=== PATIENT | male | born 1960 | race Caucasian/White ===

== ENCOUNTER 2017-10-05 07:52 | Outpatient (CLI) | payer OTHER, SELFPAY ==
[2017-10-05] VITALS (8 sets, daily range): BP systolic 125–137; BP diastolic 69–84; PULSE 69–77; RESP 16–18; TEMP 36.1; O2SAT 78–100
--- NOTE | 2017-10-05 07:58 | DI.RAD.S_ITS ---
PROCEDURE: PAIN L/S TRANSFORAMINAL INJECT INDICATIONS: L3/4 spondylolisthesis. COMPARISON: MR LS-spine 08/18/17. A FINDINGS: Fluoroscopic spot filming was performed to verify placement of spinal needles at the left L3-4 level(s), as labeled on the films. The level of injection was discussed and confirmed with Dr. Loya, with reference to the prior MRI 08/18/17. Appropriate location(s) of the needle tip(s) was confirmed by injection of iodinated contrast. IMPRESSION: Successful left L3-4 perineural epidural injection. Dictated by: Jacinto Michel M.D. on 10/05/2017 at 11:06 Approved by: Jacinto Michel M.D. on 10/05/2017 at 11:28
--- NOTE | 2017-10-05 08:14 | PM.PROC.1 ---
Procedures Date/Time Date of procedure: 10/05/17 Time of procedure: 08:16
[2017-10-05] MEDS: MIDAZOLAM 2 MG/2 ML VIAL 3 MG IV (08:49)
[2017-10-05] MEDS: methylPREDNISolone acetate 80 MG/ML VIAL INJ (08:53)
[2017-10-05] MEDS: DEXAMETHASONE 10 MG/ML VIAL 20 MG INJ (08:53)
[2017-10-05] MEDS: IOPAMIDOL 50 ML VIAL INJ (08:53)
[2017-10-05] MEDS: BUPIVACAINE 0.25% (PF) 30 ML VIAL INJ (08:53)
--- NOTE | 2017-10-05 09:10 | P.PCN_ITS ---
Procedures Date/Time Date of procedure: 10/05/17 Time of procedure: 09:04 General Procedure description: PREOP DIAGNOSIS 1. FORMAINAL STENOSIS WITH LE SYMPTOMS POST OP DIAGNOSIS 1. FORMAINAL STENOSIS WITH LE SYMPTOMS PROCEDURES 1. FLUOROSCOPICALLY GUIDED CONTRAST CONTROLLED TRANSFORAMINAL EPIDURAL STEROID INJECTION - LEFT L4/5 TFESI PHYSICIAN: Davon Loya DO INDICATIONS: Allen is referred by GWEN Diehl for treatment of Foraminal Stenosis with Left LE Symptoms FINDINGS Foraminal Nerve Root Compression secondary to disc disease and facet hypertrophy DESCRIPTION OF PROCEDURE: Following denial of allergy and review of potential side effects and complications, including, but not necessarily limited to, infection, allergic reaction, local tissue breakdown, stroke, temporary or permanent nerve injury, paralysis, and possible , the patient indicated that the patient understood and agreed to proceed. An informed consent document was signed by the patient, witnessed by a nurse, and placed in the patient's chart. Additionally, other treatment options including medications, modalities, and physical therapy were reviewed with the patient. Per the patient request, IV conscious sedation was administered via 3mg of Versed to patient comfort. The patient's vital signs were monitored throughout the procedure by both the nurse and the physician without significant fluctuation. The patient remained conversant throughout the procedure. In the prone position following sterile prep and drape of the lumbar region, the Left L4/5 posterior neuroforamen was identified fluoroscopically. The skin was anesthetized via a 25-gauge 1.5-inch needle with 1% lidocaine solution. At this point, a 25-gauge 3.5-inch spinal needle was atraumatically introduced and advanced under fluoroscopic guidance through the posterior Left L4/5 neuroforamen to approximately the anterior aspect of the canal. Depth was confirmed on lateral view. Following negative aspiration, injection of approximately 1.5 cc of Isovue 200 under live fluoroscopy in the AP view confirmed excellent flow along the nerve root, into the epidural space without vascular or intrathecal uptake observed Radiological data, including multiple fluoroscopic views of the lumbosacral spine, reveal a spinal needle at the Left L5/S1 posterior neuroforamen. Subsequent views show flow of contrast material flowing superiorly and inferiorly along the nerve root confirming epidural flow. Subsequently, a test dose of 1.5 cc of 1% lidocaine solution was administered and patient was observed for two minutes for signs or symptoms of complications , including abdominal pain, shortness of breath, bilateral upper or lower extremity weakness, nausea and vomiting, prior to steroid injection. At this point, a total of 3 cc or 20 mg of dexamethasone and 80mg Depo Medrol was injected without incident. The patient was then transferred to the recovery area where they were observed for an appropriate time after the injection. The patient reported a VAS score of 7 prior to the procedure and a post-procedure VAS of 0. Total Fluoroscopy Time: 20.9 seconds Total Conscious Sedation Tme: 24min POST OP INSTRUCTIONS The patient was provided a Pain Log to continue to record their response to the target-specific procedure prior to follow-up visit with their referring physician. Additionally, specific post-injection care instructions and a contact number to our office were provided if concerns arise regarding possible complications associated with the procedure are suspected. Davon Loya DO Complications: none
== END 2017-10-05 09:47 | disposition home or self-care (01) ==
PROVIDERS: Visit Provider Physical Medicine & Rehabilitation
DX: M54.17 Radiculopathy, lumbosacral region (principal)
CPT/HCPCS: 64483; 99152; J1040; J1100; J2250

== ENCOUNTER 2018-03-22 11:00 | Outpatient (CLI) | payer OTHER, SELFPAY ==
--- NOTE | 2018-03-22 11:01 | DI.RAD.S_ITS ---
PROCEDURE: PAIN L/S TRANSFORAMINAL INJECT INDICATIONS: [id number] Left L4/5 Transoframinal PADMINI FINDINGS: Fluoroscopic spot filming was performed to verify placement of spinal needles at the left L4-5 transforaminal level(s), as labeled on the films. Appropriate location(s) of the needle tip(s) was confirmed by injection of iodinated contrast. IMPRESSION: Successful left L4-5 neural foraminal needle tip localization for epidural steroid injection. Dictated by: Jacinto Michel M.D. on 03/22/2018 at 14:14 Approved by: Jacinto Michel M.D. on 03/22/2018 at 14:15
[2018-03-22 11:14] VITALS: BP 129/66; PULSE 75; RESP 18; O2SAT 97
[2018-03-22 11:37] VITALS: BP 122/83; PULSE 73; RESP 18; O2SAT 99
[2018-03-22 11:42] VITALS: BP 134/86; PULSE 72; RESP 18; O2SAT 99
[2018-03-22] MEDS: IOPAMIDOL 15 ML VIAL 3 ML INJ (11:43)
[2018-03-22] MEDS: BUPIVACAINE 0.25% (PF) VIAL 2 ML INJ (11:43)
[2018-03-22] MEDS: DEXAMETHASONE 10 MG/ML VIAL 20 MG INJ (11:44)
[2018-03-22] MEDS: methylPREDNISolone acetate 80 MG/ML VIAL INJ (11:44)
[2018-03-22 11:45] VITALS: BP 140/80; PULSE 72; RESP 18; O2SAT 100
--- NOTE | 2018-03-22 11:51 | P.PCN_ITS ---
Procedures Date/Time Date of procedure: 03/22/18 Time of procedure: 11:50 General Procedure description: PREOP DIAGNOSIS 1. FORMAINAL STENOSIS WITH LE SYMPTOMS POST OP DIAGNOSIS 1. FORMAINAL STENOSIS WITH LE SYMPTOMS PROCEDURES 1. FLUOROSCOPICALLY GUIDED CONTRAST CONTROLLED TRANSFORAMINAL EPIDURAL STEROID INJECTION - LEFT L4/5 PHYSICIAN: Davon Loya DO INDICATIONS: Allen is referred for Foraminal Stenosis with Left LE Symptoms FINDINGS Foraminal Nerve Root Compression secondary to disc disease and facet hypertrophy DESCRIPTION OF PROCEDURE: Following denial of allergy and review of potential side effects and complications, including, but not necessarily limited to, infection, allergic reaction, local tissue breakdown, stroke, temporary or permanent nerve injury, paralysis, and possible , the patient indicated that the patient understood and agreed to proceed. An informed consent document was signed by the patient, witnessed by a nurse, and placed in the patient's chart. Additionally, other treatment options including medications, modalities, and physical therapy were reviewed with the patient. After review of previous anaesthesic history and IV conscious sedation the patient was deemed safe to proceed with todays procedure with IV conscious sedation as ASA class II designation. Safety time-out was performed to confirm patient ID, procedure to be performed and site of procedure. IV sedation was deemed unnecessary and thus not administered by the RN after DO order, during the course of the procedure while the patient remained responsive to all verbal commands In the prone position following sterile prep and drape of the lumbar region, the left L4/5 posterior neuroforamen was identified fluoroscopically. The skin was anesthetized via a 25-gauge 1.5-inch needle with 1% lidocaine solution. At this point, a 25-gauge 3.5-inch spinal needle was atraumatically introduced and advanced under fluoroscopic guidance through the posterior left L4/5 neuroforamen to approximately the anterior aspect of the canal. Depth was confirmed on lateral view. Following negative aspiration, injection of approximately 1.5 cc of Isovue 200 under live fluoroscopy in the AP view confirmed excellent flow along the nerve root, into the epidural space without vascular or intrathecal uptake observed Radiological data, including multiple fluoroscopic views of the lumbosacral spine, reveal a spinal needle at the left L4/5 posterior neuroforamen. Subsequent views show flow of contrast material flowing superiorly and inferiorly along the nerve root confirming epidural flow. Subsequently, a test dose of 1.5 cc of 1% lidocaine solution was administered and patient was observed for two minutes for signs or symptoms of complications , including abdominal pain, shortness of breath, bilateral upper or lower extremity weakness, nausea and vomiting, prior to steroid injection. At this point, a total of 3 cc or 20 mg of dexamethasone and 80mg Depo Medrol was injected without incident. The procedure tolerated the procedure well without signs or symptoms of complications prior to transfer to the recovery area continued monitoring without incident. The patient was then transferred to the recovery area where they were observed for an appropriate time after the injection. The patient reported a VAS score of 7 prior to the procedure and a post- procedure VAS of 0. Total Fluoroscopy Time: 20.9 seconds Total Conscious Sedation Time: 24min POST OP INSTRUCTIONS The patient was provided a Pain Log to continue to record their response to the target-specific procedure prior to follow-up visit with their referring physician. Additionally, specific post-injection care instructions and a contact number to our office were provided if concerns arise regarding possible complications associated with the procedure are suspected. Davon Loya DO Complications: none
[2018-03-22 11:53] VITALS: BP 122/78; PULSE 72; RESP 16; O2SAT 100
== END 2018-03-22 12:00 ==
LOC: RAD 11:00
PROVIDERS: Visit Provider Physical Medicine & Rehabilitation
DX: M48.061 Spinal stenosis, lumbar region without neurogenic claudication (principal); M51.16 Intervertebral disc disorders with radiculopathy, lumbar region; M43.16 Spondylolisthesis, lumbar region; M99.83 Other biomechanical lesions of lumbar region
CPT/HCPCS: 64483; J1040; J1100; J2250

== ENCOUNTER 2018-07-04 13:54 | Outpatient (CLI) | payer OTHER, SELFPAY ==
[2018-07-04] VITALS (7 sets, daily range): BP systolic 117–138; BP diastolic 76–83; PULSE 68–80; RESP 16–18; TEMP 36.4; O2SAT 96–99
--- NOTE | 2018-07-04 13:57 | DI.RAD.S_ITS ---
PROCEDURE: PAIN L/S TRANSFORAMINAL INJECT INDICATIONS: Left L4-5 radiculopathy FINDINGS: Fluoroscopic spot filming was performed to verify placement of spinal needles at the L4-L5 level(s), as labeled on the films. Appropriate location(s) of the needle tip(s) was confirmed by injection of iodinated contrast. Dictated by: Durga Castaneda M.D. on 07/04/2018 at 15:19 Approved by: Durga Castaneda M.D. on 07/04/2018 at 15:20
[2018-07-04] MEDS: MIDAZOLAM 5 MG/5 ML VIAL IV (14:30)
[2018-07-04] MEDS: fentaNYL 100 MCG/2 ML INJ 50 MCG IV (14:30)
[2018-07-04] MEDS: IOPAMIDOL 15 ML VIAL 3 ML INJ (14:43)
[2018-07-04] MEDS: BUPIVACAINE 0.25% (PF) VIAL 2 ML INJ (14:43)
[2018-07-04] MEDS: DEXAMETHASONE 10 MG/ML VIAL 20 MG INJ (14:43)
--- NOTE | 2018-07-04 14:52 | PM.PROC.1 ---
Procedures Date/Time Date of procedure: 07/04/18 Time of procedure: 14:52 General Procedure description: PREOP DIAGNOSIS 1. FORMAINAL STENOSIS WITH LE SYMPTOMS POST OP DIAGNOSIS 1. FORMAINAL STENOSIS WITH LE SYMPTOMS PROCEDURES 1. FLUOROSCOPICALLY GUIDED CONTRAST CONTROLLED TRANSFORAMINAL EPIDURAL STEROID INJECTION - Left L5/S1 PHYSICIAN: Davon Loya DO INDICATIONS: Allen is referred by SUSANA Diehl for treatment of Foraminal Stenosis with Left LE Symptoms FINDINGS Foraminal Nerve Root Compression secondary to disc disease and facet hypertrophy DESCRIPTION OF PROCEDURE: Following denial of allergy and review of potential side effects and complications, including, but not necessarily limited to, infection, allergic reaction, local tissue breakdown, stroke, temporary or permanent nerve injury, paralysis, and possible , the patient indicated that the patient understood and agreed to proceed. An informed consent document was signed by the patient, witnessed by a nurse, and placed in the patient's chart. Additionally, other treatment options including medications, modalities, and physical therapy were reviewed with the patient. After review of previous anaesthesic history and IV conscious sedation the patient was deemed safe to proceed with todays procedure with IV conscious sedation as ASA class II designation. Safety time-out was performed to confirm patient ID, procedure to be performed and site of procedure. IV sedation was accomplished with a combination of 4mg of Versed and 50mcg Fentanyl was administered by the RN after DO order, titrated to patient comfort during the course of the procedure while the patient remained responsive to all verbal commands In the prone position following sterile prep and drape of the lumbar region, the Left L5/S1 posterior neuroforamen was identified fluoroscopically. The skin was anesthetized via a 25-gauge 1.5-inch needle with 1% lidocaine solution. At this point, a 25-gauge 3.5-inch spinal needle was atraumatically introduced and advanced under fluoroscopic guidance through the posterior Left L5/S1 neuroforamen to approximately the anterior aspect of the canal. Depth was confirmed on lateral view. Following negative aspiration, injection of approximately 1.5 cc of Isovue 200 under live fluoroscopy in the AP view confirmed excellent flow along the nerve root, into the epidural space without vascular or intrathecal uptake observed Radiological data, including multiple fluoroscopic views of the lumbosacral spine, reveal a spinal needle at the Left L5/S1 posterior neuroforamen. Subsequent views show flow of contrast material flowing superiorly and inferiorly along the nerve root confirming epidural flow. Subsequently, a test dose of 1.5 cc of 1% lidocaine solution was administered and patient was observed for two minutes for signs or symptoms of complications, including abdominal pain, shortness of breath, bilateral upper or lower extremity weakness, nausea and vomiting, prior to steroid injection. At this point, a total of 3 cc or 20 mg of dexamethasone and 80mg Depo Medrol was injected without incident. The procedure tolerated the procedure well without signs or symptoms of complications prior to transfer to the recovery area continued monitoring without incident. The patient was then transferred to the recovery area where they were observed for an appropriate time after the injection. The patient reported a VAS score of 7 prior to the procedure and a post-procedure VAS of 0. Total Fluoroscopy Time: 20.9 seconds Total Conscious Sedation Time: 24min POST OP INSTRUCTIONS The patient was provided a Pain Log to continue to record their response to the target-specific procedure prior to follow-up visit with their referring physician. Additionally, specific post-injection care instructions and a contact number to our office were provided if concerns arise regarding possible complications associated with the procedure are suspected. Daovn Loya DO Complications: none
--- NOTE | 2018-07-04 14:55 | PC.NURSE ---
pt tolerated procedure well. Able to get off gurney with stand by assist. Transferred pt to pre procedure room for continued monitoring with Gabriela QUIROZ.
--- NOTE | 2018-07-05 16:28 | PC.NURSE ---
FOLLOW UP CALL MADE, PT STATES PAIN IS GONE AND DENIES QUESTIONS/CONCERNS. I ENCOURAGED HIM TO CONTINUE HIS GREEN SHEET AND TO BRING THAT TO HIS FOLLOW-UP APPT.
== END 2018-07-04 15:09 | disposition home or self-care (01) ==
LOC: RAD 13:56
PROVIDERS: Visit Provider Physical Medicine & Rehabilitation
DX: M48.07 Spinal stenosis, lumbosacral region (principal); M51.17 Intervertebral disc disorders with radiculopathy, lumbosacral region; M43.16 Spondylolisthesis, lumbar region
CPT/HCPCS: 64483; 99152; J1100; J2250; J3010

== ENCOUNTER → 2019-10-29 16:07 | Outpatient (CLI) | payer OTHER, SELFPAY ==
--- NOTE | 2019-10-29 16:10 | DI.RAD.S_ITS ---
PROCEDURE: XR LUMBAR SPINE MIN 4V INDICATIONS: l4/5 slip TECHNIQUE: 5 views of the lumbar spine were acquired. COMPARISON: None. FINDINGS: Bones: No fracture or focal osseous destruction. Grade 2 anterolisthesis of L4 on L5. Severe narrowing of the L4-L5 disc space. Moderate L5-S1 disc degeneration. Mild levocurvature. Multilevel degenerative endplate sclerosis and spurring. Diffuse facet arthropathy. Soft tissues: Overlying bowel gas pattern is normal. No suspicious soft tissue calcifications. Oblique images: No pars defects. IMPRESSION: Severe L4-L5 disc degeneration and grade 2 anterolisthesis of the above Facet arthropathy Mild levocurvature Dictated by: Durga Castaneda M.D. on 10/29/2019 at 17:25 Approved by: Durga Castaneda M.D. on 10/29/2019 at 17:26
== END ==
PROVIDERS: Referring Provider Physical Medicine & Rehabilitation; Visit Provider Physical Medicine & Rehabilitation
DX: M47.26 Other spondylosis with radiculopathy, lumbar region (principal); M47.27 Other spondylosis with radiculopathy, lumbosacral region; M51.16 Intervertebral disc disorders with radiculopathy, lumbar region; M51.17 Intervertebral disc disorders with radiculopathy, lumbosacral region; M43.16 Spondylolisthesis, lumbar region; M99.83 Other biomechanical lesions of lumbar region
CPT/HCPCS: 72110

== ENCOUNTER → 2019-12-24 09:34 | Outpatient (CLI) | payer OTHER, SELFPAY ==
[2019-12-25 07:25] LABS: COVID19 Sendout Not Detected (Not Detect)
== END ==
PROVIDERS: Visit Provider Physician Assistant
DX: Z11.59 Encounter for screening for other viral diseases (principal)
CPT/HCPCS: 87635

== ENCOUNTER 2019-12-27 08:13 | Outpatient (CLI) | payer OTHER, SELFPAY ==
[2019-12-27] VITALS (9 sets, daily range): BP systolic 129–144; BP diastolic 69–78; PULSE 77–86; RESP 16–20; TEMP 36.1; O2SAT 97–100
--- NOTE | 2019-12-27 08:15 | DI.RAD.S_ITS ---
PROCEDURE: PAIN L/S TRANSFORAMINAL INJECT INDICATIONS: SPONDYLOSIS COMPARISON: None. FINDINGS: Fluoroscopic spot filming was performed to verify placement of spinal needles at the left L4-L5 level(s), as labeled on the films. Appropriate location(s) of the needle tip(s) was confirmed by injection of iodinated contrast. IMPRESSION: Fluoroscopy for pain management. Dictated by: Deisi Wong M.D. on 12/27/2019 at 10:57 Approved by: Deisi Wong M.D. on 12/27/2019 at 10:58
--- NOTE | 2019-12-27 09:26 | PC.NURSE ---
Allen is A&O able to make needs known. Green pain log and post injection instructions reviewed and has no questions or concerns.
[2019-12-27] MEDS: fentaNYL 100 MCG/2 ML INJ 50 MCG IV (10:07)
[2019-12-27] MEDS: MIDAZOLAM 5 MG/5 ML VIAL IV (10:07)
[2019-12-27] MEDS: BUPIVACAINE 0.25% (PF) VIAL 2 ML INJ (10:12)
[2019-12-27] MEDS: IOPAMIDOL 15 ML VIAL 3 ML INJ (10:13)
[2019-12-27] MEDS: BETAMETHASONE 30 MG/5 ML MDV 6 MG INJ (10:13)
[2019-12-27] MEDS: DEXAMETHASONE 10 MG/ML VIAL 20 MG INJ (10:14)
--- NOTE | 2019-12-27 10:26 | P.PCN_ITS ---
Date/Time/Diagnoses Date of procedure: 12/27/19 Time of procedure: 10:26 Pre-procedure diagnosis: 1. FORAMINAL STENOSIS WITH LE SYMPTOMS Post-procedure diagnosis: same Procedure Notes Procedure: 1. FLUOROSCOPICALLY GUIDED CONTRAST CONTROLLED TRANSFORAMINAL EPIDURAL STEROID INJECTION - LEFT L4/5 Indications: Allen is referred by Bonilla Diehl P.A-C for treatment of Foraminal Stenosis with Left LE Symptoms Physician: Davon Loya Total Fluoroscopy time (seconds): 16 Total sedation minutes: 16 Complications: none Procedure in detail & Post-procedure care: FINDINGS Foraminal Nerve Root Compression secondary to disc disease and facet hypertrophy DESCRIPTION OF PROCEDURE Following review of allergy and review of potential side effects and complications, including, but not necessarily limited to, infection, allergic reaction, local tissue breakdown, stroke, temporary or permanent nerve injury, paralysis, and possible , the patient indicated that the patient understood and agreed to proceed. An informed consent document was signed by the patient, witnessed by a nurse, and placed in the patient's chart. Additionally, other treatment options including medications, modalities, and physical therapy were reviewed with the patient. After review of previous anaesthesic history and IV conscious sedation the patient was deemed safe to proceed with today?s procedure with IV conscious sedation as ASA class II designation. Safety time-out was performed to confirm patient ID, procedure to be performed and site of procedure. IV sedation was accomplished with a combination of 3mg of Versed and 50mcg of Fentanyl administered by the RN after DO order, titrated to patient comfort during the course of the procedure while the patient remained responsive to all verbal commands In the prone position following sterile prep and drape of the lumbar region, the left L4/5 posterior neuroforamen was identified fluoroscopically. The skin was anesthetized via a 25-gauge 1.5-inch needle with 1% lidocaine solution. At this point, a 25-gauge 3.5-inch spinal needle was atraumatically introduced and advanced under fluoroscopic guidance through the posterior left L4/5 neuroforamen to approximately the anterior aspect of the canal. Depth was confirmed on lateral view. Following negative aspiration, injection of approximately 1.5 cc of Isovue 200 under live fluoroscopy in the AP view confirmed excellent flow along the nerve root, into the epidural space without vascular or intrathecal uptake observed Radiological data, including multiple fluoroscopic views of the lumbosacral spine, reveal a spinal needle at the left L4/5 posterior neuroforamen. Subsequent views show flow of contrast material flowing superiorly and inferiorly along the nerve root confirming epidural flow. Subsequently, a test dose of 1.5 cc of 1% lidocaine solution was administered and patient was observed for two minutes for signs or symptoms of complications, including abdominal pain, shortness of breath, bilateral upper or lower extremity weakness, nausea and vomiting, prior to steroid injection. At this point, a total of 3cc or 20mg of dexamethasone and 6mg of betamethasone was injected without incident. The procedure tolerated the procedure well without signs or symptoms of complications prior to transfer to the recovery area continued monitoring without incident. The patient was then transferred to the recovery area where they were observed for an appropriate time after the injection. The patient reported a VAS score of 7 prior to the procedure and a post- procedure VAS of 0. POST OP INSTRUCTIONS The patient was provided a Pain Log to continue to record their response to the target-specific procedure prior to follow-up visit with their referring physician. Additionally, specific post-injection care instructions and a contact number to our office were provided if concerns arise regarding possible complications associated with the procedure are suspected.
--- NOTE | 2019-12-27 10:39 | PC.NURSE ---
pt tolerated procedure well, assisted off table to wc, procedural side stable, returned to pre proc room for monitoring
--- NOTE | 2019-12-27 11:19 | PC.NURSE ---
patient was steady on his feet. Ambulated to car were daughter picked him up.
== END 2019-12-27 10:45 | disposition home or self-care (01) ==
LOC: RAD 08:14
PROVIDERS: Referring Provider Physical Medicine & Rehabilitation; Visit Provider Physical Medicine & Rehabilitation
DX: M48.061 Spinal stenosis, lumbar region without neurogenic claudication (principal); M51.16 Intervertebral disc disorders with radiculopathy, lumbar region
CPT/HCPCS: 64483; 99152; 99153; J0702; J1100; J2250; J3010

== ENCOUNTER → 2023-07-20 14:32 | Outpatient (CLI) | payer OTHER, SELFPAY | LOC: RESP 14:33 | PROVIDERS: PCP Family Medicine; Referring Provider Family Medicine; Visit Provider Family Medicine | DX: J44.9 Chronic obstructive pulmonary disease, unspecified (principal); F17.210 Nicotine dependence, cigarettes, uncomplicated | CPT/HCPCS: 94060; 94726; 94729 ==

== ENCOUNTER → 2023-07-27 10:00 | Outpatient (CLI) | payer OTHER, SELFPAY ==
[2023-07-27 10:58] LABS: Add Manual Diff / Slide Review NO; Basophils Absolute Auto 100 /uL (0-100); Basophils Percent Auto 1.1 % (0-2); Eosinophils Absolute Auto 100 /uL (0-450); Eosinophils Percent Auto 1.7 % (2-4); Hematocrit 46.3 % (41-53); Lymphocytes Absolute Auto 2200 /uL (1100-4500); Lymphocytes Percent Auto 37.2 % (25-40); Mean Corpuscular HGB Conc 34.6 % (30-36); Mean Corpuscular Volume 92.4 fL (80-100); Monocytes Absolute Auto 400 /uL (0-900); Monocytes Percent Auto 7.1 % (3-14); Neutrophils Absolute Auto 3200 /uL (1500-7000); Neutrophils Percent Auto 52.9 % (50-75); Platelet Count 181 X10^3/uL (150-400); Red Cell Distribution Width 13.9 % (11.6-14.8)
[2023-07-27 11:35] LABS: Alanine Aminotransferase 16 IU/L (<50); Albumin 4.4 g/dL (3.5-5.0); Albumin Globulin Ratio 1.4 (1.0-2.8); Alkaline Phosphatase 103 U/L (38-126); Aspartate Aminotransferase 22 IU/L (17-59); BUN Creatinine Ratio 16.7 (6-22); Bilirubin Total 0.7 mg/dL (0.2-1.3); Blood Urea Nitrogen 11 mg/dL (9-20); Calcium 9.1 mg/dL (8.4-10.2); Carbon Dioxide 33 mmol/L (22-32); Chloride 105 mmol/L (98-107); Cholesterol 197 mg/dL (140-199); Estimated Glomerular Filt Rate > 60 mL/min (>60); Globulin 3.2 g/dL (1.7-4.1); Glucose 93 mg/dL (80-110); HDL Cholesterol 45 mg/dL (40-60); HEMOLYSIS < 15 (0-50); LDL Cholesterol Calculated 121 mg/dL (<100); Sodium 142 mmol/L (137-145); Total Protein 7.6 g/dL (6.3-8.2); Triglycerides 157 mg/dL (35-150)
[2023-07-27 11:37] LABS: Potassium 4.1 mmol/L (3.4-5.1)
[2023-07-28 14:09] LABS: Fecal Immunochemical Test Negative (Negative)
== END ==
PROVIDERS: PCP Family Medicine; Referring Provider Family Medicine; Visit Provider Family Medicine
DX: E87.8 Other disorders of electrolyte and fluid balance, not elsewhere classified (principal); R06.02 Shortness of breath; Z12.11 Encounter for screening for malignant neoplasm of colon; Z13.220 Encounter for screening for lipoid disorders; Z13.9 Encounter for screening, unspecified
CPT/HCPCS: 36415; 80053; 80061; 82274; 85025

== ENCOUNTER → 2023-10-18 11:10 | Outpatient (CLI) | payer OTHER, SELFPAY | LOC: RESP 11:11 | PROVIDERS: PCP Family Medicine; Referring Provider Family Medicine; Visit Provider Family Medicine | DX: J44.9 Chronic obstructive pulmonary disease, unspecified (principal); R68.89 Other general symptoms and signs | CPT/HCPCS: 93005 ==

== ENCOUNTER → 2023-11-18 14:41 | Outpatient (CLI) | payer OTHER, SELFPAY ==
--- NOTE | 2023-11-18 14:42 | DI.CT.S_ITS ---
PROCEDURE: CT LUNG LOW DOSE SCREENING INDICATIONS: Tobacco use TECHNIQUE: Noncontrast 2.0-2.5 mm thick sections acquired from the pulmonary apices to the posterior costophrenic angles. 7 mm thick axial MIP, and 5 mm coronal and sagittal reformats were then acquired. For radiation dose reduction, the following was used: automated exposure control, adjustment of mA and/or kV according to patient size. COMPARISON: None. FINDINGS: Image quality: Diagnostic. Lower Neck: No enlarged lymph nodes. Thyroid: No thyroid nodules which require sonographic follow up, per consensus guidelines. Axillae: No enlarged lymph nodes. Chest Wall: Unremarkable. Bones: Unremarkable. Lungs and Pleura: No pneumothorax or pleural effusions. Moderate centrilobular and paraseptal emphysema. Bronchial thickening with bronchial secretions. 7 x 5 millimeter solid nodule, right lower lobe (series 3, image 115). Heart: Heart size is normal. No pericardial effusion. Marked LAD calcifications for age. Thoracic Vessels: The aorta and pulmonary arteries demonstrate normal size. Mediastinum and [place]: No enlarged lymph nodes. Esophagus: No wall thickening. No hiatal hernia. Upper Abdomen: Visualized upper abdomen solid organs and bowel loops appear normal. IMPRESSION: 6 millimeter solid nodule in the right lower lobe. LUNG-RADS 3; six-month follow-up is recommended. Clinically Significant Non-pulmonary Findings: Marked coronary artery calcifications for age. Correlate with risk factors and advise counseling. Dictated by: Ernie Zapata M.D. on 11/18/2023 at 15:35 Approved by: Ernie Zapata M.D. on 11/18/2023 at 15:39
--- NOTE | 2023-11-18 16:27 | DI.ECHO.S_ITS ---
[place] +---------+ [facility] : : [address] : : [place] : : [id number] : : Phone: [phone] Echocardiogram Report + + :Name: MELQUIADES DAMICO Study Date: 11/18/2023 Height: 71 in : :[facility] ReadingLocation: Weight: 200 lb : : Gender: Male BSA: 2.1 m2 : :: 1960 Age: 63 yrs BP: 144/88 mmHg: :Reason For Study: COPD : :Ordering Physician: UNIQUE, : :HAIDER Boyer Performed By: Haider Bentley : :Referring: HAIDER CALHOUN : + + Interpretation Summary This is a technically difficult study characterized by particularly technically difficult valve visualization on parasternal views. Normal sinus rhythm. Normal LV size; mild LVH; normal wall motion and LV systolic function. EF is 50-55%. Mildly dilated RV with normal RV systolic function. Otherwise normal chamber sizes. Aortic valve leaflets are moderately thickened and calcified wtih mild associated aortic regurgitation and stenosis. It is characterized by significant degenerative changes. If endocarditis is clinically suspected, consider blood culture and urgent cardiology referral for DAVID. No prior study available for comparison. Procedure: A two-dimensional transthoracic echocardiogram with color flow and Doppler was performed. The study quality was technically adequate. There is no prior echocardiogram noted for this patient. The patient was in normal sinus rhythm during the exam. The heart rate ranged between 64-88 bpm during the study. Left Ventricle: The left ventricle is normal in size. Left ventricular wall thickness is mildly increased. The ejection fraction is estimated to be 50- 55%. Right Ventricle: The right ventricle is mildly dilated. The right ventricular systolic function is normal. Atria: The left atrial size is normal. Right atrial size is normal. The interatrial septum grossly appears intact with no obvious evidence for an atrial septal defect. Mitral Valve: The mitral valve is grossly normal. There is no mitral valve stenosis. There is trace mitral regurgitation. Aortic Valve: There is mild aortic valve sclerosis. There is mild aortic stenosis. The peak aortic velocity is 2.20 m/sec. The aortic valve mean gradient is 11.5 mmHg. There is mild aortic regurgitation. There is an eccentric jet of aortic insufficiency directed against the anterior mitral leaflet. Tricuspid Valve: The tricuspid valve is not well visualized, but is grossly normal. There is no tricuspid stenosis. No tricuspid regurgitation. Pulmonic Valve: The pulmonic valve is not well visualized. There is no pulmonic valvular stenosis. There is no pulmonic valvular regurgitation. Great Vessels: The aortic root is normal size. The dimensions of the ascending aorta are normal. The IVC is of normal diameter and collapses greater than 50% with a sniff. This suggests a low right atrial pressure of 3 mm Hg. Pericardium/ Pleura There is no pericardial effusion. There is no pleural effusion. MMode/2D Measurements & Calculations LVIDd: 4.4 cm LVOT diam: 2.3 cm LVIDs: 3.0 cm Ao root diam: 3.6 cm FS: 33.4 % asc Aorta Diam: 3.8 cm IVSd: 1.2 cm Ao Arch Diam (Prox Trans): 2.5 cm LVPWd: 1.2 cm LV aviles. diameter/BSA (cm/m^2): 2.1 LV sys. diameter/BSA (cm/m^2): 1.4 LA A2 area: 21.8 cm2 RA long axis: 4.7 cm LA A4 area: 17.7 cm2 RA area: 16.3 cm2 LA length (vol): 5.4 cm RA vol: 47.7 ml LA vol: 61.2 ml RA : 22.6 ml/m2 LA vol index: 29.0 ml/m2 IVC diam: 1.6 cm RVD1 (basal): 3.7 cm RVD2 (mid): 3.2 cm TAPSE: 2.2 cm Doppler Measurements & Calculations Ao V2 max: 220.3 cm/sec LVOT Max Lorne: 74.1 cm/sec Ao V2 mean: 161.9 cm/sec LV V1 max P.2 mmHg Ao max P.4 mmHg LV V1 VTI: 18.1 cm Ao mean P.5 mmHg CELINA(I,D): 1.6 cm2 Ao V2 VTI: 48.1 cm CELINA(V,D): 1.4 cm2 sev ratio: 0.38 CELINA indexed to BSA (cm^2/m^2): 0.75 MV E max lorne: 62.5 cm/sec PA V2 max: 79.5 cm/sec MV A max lorne: 56.9 cm/sec PA V2 mean: 60.6 cm/sec MV E/A: 1.1 PA mean P.5 mmHg Med Peak E' Lorne: 6.9 cm/sec PA pr(Accel): 29.3 mmHg E/E' med: 9.1 Lat Peak E' Lorne: 9.4 cm/sec E/E' lat: 6.6 E/e' average: 7.9 MV dec time: 0.25 sec SV(LVOT): 76.3 ml Electronically signed by: Penny Cortez M.D. on [place] Physician:11/19/2023 02:50 AM
== END ==
PROVIDERS: PCP Family Medicine; Referring Provider Internal Medicine Critical Care Medicine; Visit Provider Internal Medicine Critical Care Medicine
DX: Z12.2 Encounter for screening for malignant neoplasm of respiratory organs (principal); J44.9 Chronic obstructive pulmonary disease, unspecified; F17.210 Nicotine dependence, cigarettes, uncomplicated; R91.1 Solitary pulmonary nodule; I35.2 Nonrheumatic aortic (valve) stenosis with insufficiency; I25.10 Atherosclerotic heart disease of native coronary artery without angina pectoris
CPT/HCPCS: 71271; 93306

== ENCOUNTER → 2024-01-05 10:32 | Outpatient (CLI) | payer BC, SELFPAY ==
--- NOTE | 2024-01-05 10:33 | DI.CT.S_ITS ---
PROCEDURE: CT ANGIO CHEST INDICATIONS: Interarm BP discrepancy, coarctation v atherosclerosis v oth TECHNIQUE: After the administration of intravenous contrast, 2 mm thick sections acquired from the pulmonary apices to the posterior costophrenic angles. 3-dimensional maximum intensity projection (MIP) coronal and sagittal reformats were then acquired through the thorax. For radiation dose reduction, the following was used: automated exposure control, adjustment of mA and/or kV according to patient size. COMPARISON: [facility], CT, CT LUNG LOW DOSE SCREENING, 11/18/2023, 15:08. FINDINGS: Image quality: Diagnostic. Thoracic Vessels: No aortic aneurysm or aortic dissection. Origins of the great vessels are patent. No great vessel aneurysm or ectasia. Ascending thoracic aorta is normal in caliber at the level of the main pulmonary artery measuring 3.8 x 3.7 cm (4/28). Pulmonary arteries: No filling defects in the central pulmonary vasculature. Lower Neck: No enlarged lymph nodes. Thyroid: No thyroid nodules which require sonographic follow up, per consensus guidelines. Axillae: No enlarged lymph nodes. Chest Wall: Unremarkable. Bones: Unremarkable. Lungs and Pleura: No pneumothorax or pleural effusions. Compared to CT chest dated November 18, 2023, no new or enlarging solid pulmonary nodule or consolidation. Stable solid, noncalcified pulmonary nodule in the basilar segment of the right upper lobe measuring 6 x 4 mm (6/99), previously 7 x 5 mm (3/115). Moderate to marked apical predominant centrilobular and paraseptal emphysema. Biapical pleural parenchymal scarring. Patent central airways. Heart: Heart size is normal. No pericardial effusion. Calcification of the aortic valve. Marked LAD coronary vessel calcification. Mediastinum and [place]: No enlarged lymph nodes. Esophagus: No wall thickening. No hiatal hernia. Upper Abdomen: Visualized upper abdomen solid organs and bowel loops appear normal. IMPRESSION: 1. No aortic pathology. Specifically, thoracic aorta is normal in caliber, without aneurysm. 2. Stable pulmonary nodule in the basilar segment of the right upper lobe measuring 6 x 4 mm since November 18, 2023. Plan for a repeat CT chest in 3 months as described on CT dated November 18, 2023. 3. Marked LAD coronary vessel calcification. 4. Moderate to marked emphysema. Dictated by: Vijay Ochoa M.D. on 01/05/2024 at 14:43 Approved by: Vijay Ochoa M.D. on 01/05/2024 at 17:00
[2024-01-05 11:35] LABS: Estimated Glomerular Filt Rate > 60 mL/min (>60)
== END ==
PROVIDERS: Radiology Diagnostic Radiology; PCP Family Medicine; Referring Provider Family Medicine; Visit Provider Family Medicine
DX: I25.10 Atherosclerotic heart disease of native coronary artery without angina pectoris (principal); J43.2 Centrilobular emphysema; R68.89 Other general symptoms and signs; R91.1 Solitary pulmonary nodule
CPT/HCPCS: 36415; 71275; 82565; Q9967

== ENCOUNTER → 2024-11-19 09:24 | Outpatient (CLI) | payer BC, SELFPAY ==
[2024-11-19 10:29] LABS: Add Manual Diff / Slide Review NO; Hematocrit 48.3 % (41-53); Hemoglobin 16.6 g/dL (13.5-17.5); Lymphocytes Absolute Auto 2300 /uL (1100-4500); Mean Corpuscular HGB Conc 34.3 % (30-36); Mean Corpuscular Hemoglobin 32.6 PG (26-34); Mean Corpuscular Volume 94.9 fL (80-100); Platelet Count 161 X10^3/uL (150-400)
[2024-11-19 10:58] LABS: Blood Urea Nitrogen 11 mg/dL (9-20); Calcium 8.9 mg/dL (8.4-10.2); Carbon Dioxide 31 mmol/L (22-32); Chloride 102 mmol/L (98-107); Cholesterol 209 mg/dL (140-199); Estimated Glomerular Filt Rate > 60 mL/min (>60); Glucose 89 mg/dL (70-99); HDL Cholesterol 54 mg/dL (40-60); HEMOLYSIS < 15 (0-50); Potassium 4.4 mmol/L (3.4-5.1); Sodium 137 mmol/L (137-145); Triglycerides 91 mg/dL (35-150)
== END ==
PROVIDERS: PCP Family Medicine; Referring Provider Family Medicine; Visit Provider Family Medicine
DX: E78.00 Pure hypercholesterolemia, unspecified (principal); Z13.9 Encounter for screening, unspecified; Z12.5 Encounter for screening for malignant neoplasm of prostate
CPT/HCPCS: 36415; 80048; 80061; 85025; G0103